=== PATIENT | male | born 1990 ===

== ENCOUNTER 2017-06-22 19:39 | Emergency (ER) | payer SELFPAY ==
[2017-06-22] MEDS ORDERED: Glucagon* 1 MG VIAL IV ONE (21:51)
[2017-06-22] MEDS ORDERED: NS 0.9% 1000 ML* 1,000 ML IV SCH (22:00)
[2017-06-23 00:16] VITALS: BP 134/80
--- NOTE | 2017-06-29 16:08 | ED ---
Paul Chavarria Thomas, scribed for Saroj Chou MD on 06/22/17 at 2159 . Throat Pain/Nasal Congestion - HPI Summary HPI Summary: The patient is a 27 year old male presenting with a food stuck in his throat for the last 2-3 hours, since he was eating shrimp and pasta. The patient has a history of the same problem that required scoping. He has been making secretions. This was done at [place]. - History of Current Complaint Chief Complaint: EDForeignBodyEsophag Time Seen by Provider: 06/22/17 21:47 Hx Obtained From: Patient Onset/Duration: Lasting Hours - 2-3, Still Present Severity: Moderate Associated Signs And Symptoms: Positive: FB Sensation Cough: None Related History: Other (Noted In Comments) - Hx of foreign body in throat - Allergies/Home Medications Allergies/Adverse Reactions: Allergies Allergy/AdvReac Type Severity Reaction Status Date / Time No Known Allergies Allergy Verified 06/22/17 19:47 PMH/Surg Hx/FS Hx/Imm Hx Sensory History: Denies: Hx Legally Blind EENT History: Reports: Other - Hx foreign body in throat Infectious Disease History: No Infectious Disease History: Denies: Traveled Outside the [place] in Last 30 Days - Family History Known Family History: Positive: Other - Patient denies relevant FHx - Social History Alcohol Use: Occasionally Hx Substance Use: No Substance Use Type: Reports: None Hx Tobacco Use: Yes Smoking Status (MU): Current Every Day Smoker Review of Systems Negative: Fever, Chills Negative: Erythema - eyes Positive: Other - Foreign body in throat . Negative: Sore Throat Negative: Chest Pain Negative: Shortness Of Breath, Cough Negative: Abdominal Pain, Vomiting, Nausea Negative: dysuria, hematuria Negative: Myalgia, Edema Negative: Rash Neurological: Negative - dizziness All Other Systems Reviewed And Are Negative: Yes Physical Exam - Summary Physical Exam Summary: Constitutional: Well-developed, Well-nourished, Alert. (-) Distressed. He is uncomfortable. Skin: Warm, Dry HENT: Normocephalic; Atraumatic. he is spitting out secretions. Eyes: Conjunctiva normal Neck: Musculoskeletal ROM normal neck. (-) JVD, (-) Stridor, (-) Tracheal deviation Cardio: Rhythm regular, rate normal, Heart sounds normal; Intact distal pulses; The pedal pulses are 2+ and symmetric. Radial pulses are 2+ and symmetric. (-) Murmur Pulmonary/Chest wall: Effort normal. (-) Respiratory distress, (-) Wheezes, (-) Rales Abd: Soft, (-) Tenderness, (-) Distension, (-) Guarding, (-) Rebound Musculoskeletal: (-) Edema Lymph: (-) Cervical adenopathy Neuro: Alert, Oriented x3 Psych: Mood and affect Normal Triage Information Reviewed: Yes Vital Signs On Initial Exam: Initial Vitals Temp Pulse Resp BP Pulse Ox 97.3 F 80 16 133/84 96 06/22/17 19:42 06/22/17 19:42 06/22/17 19:42 06/22/17 19:42 06/22/17 19:42 Vital Signs Reviewed: Yes Diagnostics - Vital Signs Vital Signs Temp Pulse Resp BP Pulse Ox 06/22/17 21:44 98.1 F 62 16 117/66 99 06/22/17 19:42 97.3 F 80 16 133/84 96 - Laboratory Lab Statement: Any lab studies that have been ordered have been reviewed, and results considered in the medical decision making process. EENT Course/Dx - Course Assessment/Plan: The patient is a 27 year old male presenting with a food stuck in his throat for the last 2-3 hours. He has a history of food getting stuck in his throat. The patient vomitted after glucagon. He immediately felt better. He consumed a liter of water. He is asymptomatic at this time. He will be discharged home with follow up at his tile grader and primary care in [facility]. - Diagnoses Provider Diagnoses: Impacted food bolus, Esophageal stricture (suspected) Discharge - Discharge Plan Condition: Stable Disposition: HOME Patient Education Materials: Esophageal Stricture (ED) Referrals: [facility] [place] PHYSICIAN REFERRAL [Outside] - 3 Days Additional Instructions: Follow up with your tile grader in [facility] in 2-3 days. Follow up with your primary care physician in [facility] in 2-3 days. I have given you the [facility] physician referral service to make an appointment with a physician if you would like. Return to the emergency department for any new or worsening symptoms. The documentation as recorded by the Paul soares Thomas accurately reflects the service I personally performed and the decisions made by me, Saroj Chou MD.
== END 2017-06-23 00:15 | disposition home or self-care (01) ==
LOC: ED 19:39
DX: T17.228A Food in pharynx causing other injury, initial encounter (principal); K22.2 Esophageal obstruction; X58.XXXA Exposure to other specified factors, initial encounter; Y92.9 Unspecified place or not applicable; F17.210 Nicotine dependence, cigarettes, uncomplicated
CPT/HCPCS: 96374; 99283; J1610